=== PATIENT | male | born 1945 ===

== ENCOUNTER 2019-02-19 05:23 | Day surgery (SDC) | payer MEDICARE, MEDICAID ==
[2019-02-19] VITALS (10 sets, daily range): BP systolic 115–134; BP diastolic 63–80
[~2019-02-19] VITALS: Ht 170.2 cm; Wt 88.5 kg
[~2019-02-19 05:23] MED LIST: GLIPIZIDE5 MG ORAL; LIPITOR40 MG ORAL; LISINOPRIL20 MG ORAL
[2019-02-19] MEDS ORDERED: Akten 3.5% 1ml Btl ONE (05:51)
[2019-02-19 06:15] LABS: BASOPHILS % (AUTO) 1.6 % (0.0-2.0); HEMATOCRIT 43.8 % (42.0-52.0); HEMOGLOBIN 14.6 G/DL (14.2-18.0); LYMPHOCYTES % (AUTO) 40.2 % (20.0-45.0); MEAN CORPUSCULAR VOLUME 88 FL (80-99); MONOCYTES % (AUTO) 7.3 % (1.0-10.0); NEUTROPHILS % (AUTO) 47.9 % (45.0-75.0); PLATELET COUNT 198 K/UL (150-450); RED BLOOD COUNT 4.96 M/UL (4.70-6.10); RED CELL DISTRIBUTION WIDTH 11.3 % (11.6-14.8); WHITE BLOOD COUNT 7.4 K/UL (4.8-10.8)
[2019-02-19 06:24] LABS: ANION GAP 9 mmol/L (5-15); BLOOD UREA NITROGEN 16 mg/dL (7-18); CALCIUM 9.2 MG/DL (8.5-10.1); CARBON DIOXIDE 24 MMOL/L (21-32); CHLORIDE 105 MMOL/L (98-107); CREATININE 0.9 MG/DL (0.55-1.30); POTASSIUM 4.1 MMOL/L (3.5-5.1); SODIUM 138 MMOL/L (136-145)
[2019-02-19 06:26] LABS: INR 0.9 (0.9-1.1)
[2019-02-19] MEDS ORDERED: Akten 3.5% 1ml Btl BOTH EYES ONE (07:00)
[2019-02-19] MEDS ORDERED: Lidocaine 2% 20mg/ml/Epi 0.005mg/ml 20ml vial ONE (07:03)
[2019-02-19] MEDS ORDERED: Bupivacaine 0.75% 30ml vial INJ ONE (07:03)
[2019-02-19] MEDS ORDERED: BSS 15ml BTL ONE (07:07)
[2019-02-19] MEDS ORDERED: Maxitrol Opth Oint 3.5gm ONE (07:07)
[2019-02-19] MEDS ORDERED: Povidone-Iodine 5% opth solution ONE (07:07)
--- NOTE | 2019-02-19 07:12 | Pre-Procedure Note/Attestation ---
Pre-Procedure Note/Attestation Complete Prior to Procedure Planned Procedure: bilateral Procedure Narrative: Bilateral upper eyelid blepharoplasty Indications for Procedure Pre-Operative Diagnosis: Significant Dermatochalasis, entropion and ptosis Attestation I attest that I discussed the nature of the procedure; its benefits; risks and complications; and alternatives (and the risks and benefits of such alternatives ), prior to the procedure, with the patient (or the patient's legal b2b outside sales representative). I attest that, if there was a reasonable possibility of needing a blood transfusion, the patient (or the patient's legal b2b outside sales representative) was given the [facility] standardized written summary, pursuant to the [employer] [place] [place] Blood Safety Act ([place] Health and Safety Code # 1645, as amended). I attest that I re-evaluated the patient just prior to the surgery and that there has been no change in the patient's H&P, except as documented below: Raymundo Thrasher MD Feb 19, 2019 07:12
[2019-02-19] MEDS ORDERED: LR 1000ml 1,000 ML IVLG SCH (07:16)
--- NOTE | 2019-02-19 07:16 | Anethesia Preoperative Eval ---
Anesthesia Pre-op PMH/ROS General Date of Evaluation: Feb 19, 2019 Anesthesiologist: Maurice ASA Score: ASA 2 Mallampati Score Class I : Soft palate, uvula, fauces, pillars visible Class II: Soft palate, uvula, fauces visible Class III: Soft palate, base of uvula visible Class IV: Only hard plate visible Mallampati Classification: Class II Surgeon: Bakthiary Diagnosis: Bilateral eyelid ptosis Surgical Procedure: Bilateral blepharoplasty Anesthesia History: none Family History: no anesthesia problems Allergies: Coded Allergies: No Known Allergies (Unverified , 02/14/19) Medications: see eMAR Patient NPO?: Yes NPO Date: Feb 18, 2019 NPO Time: 22:00 Past Medical History Cardiovascular: Reports: HTN, other - HLD Pulmonary: Denies: asthma, COPD, DALY, other Gastrointestinal/Genitourinary: Denies: GERD, CRI, ESRD, other Neurologic/Psychiatric: Denies: dementia, CVA, depression/anxiety, TIA, other Endocrine: Reports: DM; Denies: hypothyroidism, steroids, other HEENT: Denies: cataract (L), cataract (R), glaucoma, [place] (L), [place] (R), other Hematology/Immune: Denies: anemia, DVT, bleeding disorder, other Musculoskeletal/Integumentary: Denies: OA, RA, DJD, DDD, edema, other PSxH Narrative: bilateral cataract, T&A Anesthesia Pre-op Phys. Exam Physician Exam Last Vital Signs Date Time Temp Pulse Resp B/P (MAP) Pulse Ox O2 Delivery O2 Flow Rate FiO2 02/19/19 06:03 97.7 71 20 134/76 97 Room Air Constitutional: NAD Cardiovascular: RRR Respiratory: CTA Airway Exam Mallampati Score: Class II MO: full ROM: full Anesthesia Pre-op A/P Labs Hematology Test 02/19/19 05:55 White Blood Count 7.4 K/UL (4.8-10.8) Red Blood Count 4.96 M/UL (4.70-6.10) Hemoglobin 14.6 G/DL (14.2-18.0) Hematocrit 43.8 % (42.0-52.0) Mean Corpuscular Volume 88 FL (80-99) Mean Corpuscular Hemoglobin 29.5 PG (27.0-31.0) Mean Corpuscular Hemoglobin Concent 33.4 G/DL (32.0-36.0) Red Cell Distribution Width 11.3 % (11.6-14.8) L Platelet Count 198 K/UL (150-450) Mean Platelet Volume 7.5 FL (6.5-10.1) Neutrophils (%) (Auto) 47.9 % (45.0-75.0) Lymphocytes (%) (Auto) 40.2 % (20.0-45.0) Monocytes (%) (Auto) 7.3 % (1.0-10.0) Eosinophils (%) (Auto) 3.0 % (0.0-3.0) Basophils (%) (Auto) 1.6 % (0.0-2.0) Coagulation Test 02/19/19 05:55 Prothrombin Time 10.1 SEC (9.30-11.50) Prothromb Time International Ratio 0.9 (0.9-1.1) Activated Partial Thromboplast Time 26 SEC (23-33) Chemistry Test 02/19/19 05:55 Sodium Level 138 MMOL/L (136-145) Potassium Level 4.1 MMOL/L (3.5-5.1) Chloride Level 105 MMOL/L (98-107) Carbon Dioxide Level 24 MMOL/L (21-32) Anion Gap 9 mmol/L (5-15) Blood Urea Nitrogen 16 mg/dL (7-18) Creatinine 0.9 MG/DL (0.55-1.30) Estimat Glomerular Filtration Rate mL/min (>60) Glucose Level 143 MG/DL (74-106) H Calcium Level 9.2 MG/DL (8.5-10.1) Studies Pre-op Studies: EKG - sr with RBBB=baseline Risk Assessment & Plan Assessment: ASA II Plan: MAC Status Change Before Surgery: No Pre-Antibiotics Drug: N/A Nati Crawford MD Feb 19, 2019 07:16
[2019-02-19] MEDS ORDERED: Propofol 200mg/20ml IV ONE (07:18)
[2019-02-19] MEDS ORDERED: fentaNYL 100 mcg/2 mL IV ONE (07:18)
[2019-02-19] MEDS ORDERED: Lidocaine 1% MPF 10mg/ml 5ml ONE (07:18)
[2019-02-19] MEDS ORDERED: Midazolam 2mg/2ml Inj ONE (07:18)
[2019-02-19] MEDS ORDERED: NS Irrig 1000ml ONE (07:19)
[2019-02-19] MEDS ORDERED: LR 1000ml ONE (07:19)
[2019-02-19] MEDS ORDERED: Sterile Water Irrig 1000ml IRRIG ONE (07:19)
[2019-02-19] MEDS ORDERED: DiphenhydrAMINE 50mg/ml Inj IVP PRN (07:30)
[2019-02-19] MEDS ORDERED: LORazepam Inj 2mg/ml 1ml IV PRN (07:30)
[2019-02-19] MEDS ORDERED: Metoclopramide 10mg/2ml Inj IVP PRN ×2 (07:30)
--- NOTE | 2019-02-19 08:26 | Brief Operative Note ---
Immediate Post Operative Note Operative Note Pre-op Diagnosis: Significant Dermatochalasis, entropion and ptosis Procedure: Upper lids blepharoplasty OU Post-op Diagnosis: same as pre-op Anesthesia: local, MAC Specimen: none Complications: none Condition: stable Fluids: 0 Estimated Blood Loss: minimal Implant(s) used?: No Raymundo Thrasher MD Feb 19, 2019 08:26
--- NOTE | 2019-02-19 08:27 | 48 Hour Post Anesthesia Eval ---
Post Anesthesia Evaluation Procedure: Bilateral blepharoplasty Date of Evaluation: Feb 19, 2019 Airway: patent Nausea: No Vomiting: No Pain Intensity: 0 Hydration Status: adequate Cardiopulmonary Status: at baseline Mental Status/LOC: patient returned to baseline Post-Anesthesia Complications: 0 Follow-up care needed: ready to discharge Nati Crawford MD Feb 19, 2019 08:27
--- NOTE | 2019-02-19 08:27 | Immediate Post-Op Evaluation ---
Immediate Post-Op Evalulation Immediate Post-Op Evalulation Procedure: Bilateral blepharoplasty Date of Evaluation: Feb 19, 2019 Time of Evaluation: 08:29 IV Fluids: 300 Blood Products: 0 Estimated Blood Loss: 0 Urinary Output: 0 Blood Pressure Systolic: 124 Blood Pressure Diastolic: 68 Pulse Rate: 72 Respiratory Rate: 16 O2 Sat by Pulse Oximetry: 98 Temperature (Fahrenheit): 97.3 Pain Score (1-10): 0 Nausea: No Vomiting: No Complications 0 Patient Status: awake, reacts, patent, none Hydration Status: adequate Drug: N/A Nati Crawford MD Feb 19, 2019 08:27
--- NOTE | 2019-02-19 08:28 | Discharge Instructions ---
Discharge Instructions Discharge Instructions Resume Normal Activity?: Yes For Surgical Patients Dressing Care: keep dry and clean May shower: No For Congestive Heart Failure Reminder Report to your physician any weight gain of 5 pounds or more in one week. Raymundo Thrasher MD Feb 19, 2019 08:28
[2019-02-19] MEDS ORDERED: Maxitrol Opth Oint 3.5gm BOTH EYES ONE (09:00)
--- NOTE | 2019-02-19 10:30 | Pre-op HX & Phy Repo 2 SIG ---
DATE OF ADMISSION: 02/19/2019 PRESURGICAL INTERNAL MEDICINE HISTORY AND PHYSICAL DATE OF EVALUATION: 02/19/2019 REASON FOR EVALUATION: I was asked by Dr. Raymundo Thrasher to see this 73-year-old male, who is going for elective surgery on both eyes. The patient has bilateral ptosis upper lid. Please see full ophthalmology History and Physical by Dr. Thrasher. The patient was examined. Chart was reviewed at [facility]. The patient is alert, well-developed and well-nourished male in his 70s, no acute distress. PAST MEDICAL HISTORY AND REVIEW OF SYSTEMS: Remarkable for hypertension, diabetes mellitus type 2, and coronary heart disease. No heart attack. Denies history of stroke or pulmonary problem. No history of anemia. Denies history of thyroid problem. No history of GI bleeding or hepatitis. No renal failure or prostate problem. PAST SURGICAL HISTORY: Remarkable for 19 years ago the patient did require stent placement to coronary artery. FAMILY HISTORY: Father at the age of 60 from heart attack. Mother at age of 88, old age. ALLERGIES: Not known. PRESENT MEDICATIONS: Include Janumet, baby aspirin, multivitamins, lisinopril, and Crestor. HABITS: The patient smoked for about 10 years, stopped 30 years ago. Denies alcohol or street drug use. PHYSICAL EXAMINATION: GENERAL: The patient is alert, well-developed and well-nourished male in his 70s, in no acute distress. VITAL SIGNS: Blood pressure 134/76, temperature 97.7, pulse 71 and regular, and respirations 20. O2 saturation 97% on room air. SKIN: Dry, warm, and clear. No rashes or ulcers. LYMPHATICS: Lymph nodes not enlarged. HEENT: Head is normocephalic. Bald. Eyes, full description per Dr. Raymundo Thrasher. Mouth, clear and moist. No dentures. Ears, clear. No discharge. NECK: Supple. No jugular vein distention. Carotids artery +2. Trachea midline. CHEST: No deformity or asymmetry. LUNGS: Clear to auscultation percussion. No rales or rhonchi. HEART: Sinus rhythm. No ectopy. Sound distant. No murmur. ABDOMEN: Soft, obese. Liver and spleen not enlarged. No rebound. No palpable masses. GENITALIA: Intact. Denied dysuria. No CVA tenderness. NEUROLOGIC: II to XII no pathology seen. No tremor. No nystagmus. No asymmetry. DIAGNOSTIC DATA: Electrocardiogram, normal sinus rhythm, rate is 75, right bundle-branch block. LABORATORY DATA: Fingerstick blood sugar 132 mg/dL. Rest of laboratory pending. IMPRESSION: 1. Blepharoptosis, bilateral upper lid. 2. Hypertension, controlled. 3. Diabetes mellitus type 2, controlled. 4. Right bundle-branch block on EKG. 5. History of coronary heart disease and coronary stent placement 20 years ago. The patient did not eat or drink from last night. PLAN: Blepharoplasty bilaterally per Dr. Thrasher. Thank you very much, Dr. Thrahser, for privilege to see this interesting patient. The patient's condition is optimized for surgery. Edgar Winter M.D. DR: JANEY JOB#: [id number] CC:
--- NOTE | 2019-02-20 03:45 | Procedure Note ---
DATE OF PROCEDURE: 02/19/2019 SURGEON: Raymundo Thrasher M.D. PREOPERATIVE DIAGNOSES: 1. Significant upper eyelid dermatochalasis, both eyes. 2. Upper eyelid ptosis, both eyes. 3. Entropion, upper eyelid, both eyes. POSTOPERATIVE DIAGNOSES: 1. Significant upper eyelid dermatochalasis, both eyes. 2. Upper eyelid ptosis, both eyes. 3. Entropion, upper eyelid, both eyes. PROCEDURE: 1. Upper eyelid blepharoplasty, both eyes. 2. Ptosis repair, both eyes. 3. Entropion correction, both eyes. ANESTHESIA: MAC with local anesthesia. SPECIMEN: None. BLEEDING: Minimal. COMPLICATION: None. INDICATION: The patient is a 73-year-old male with significant dermatochalasis and droopy eyelid in both eyes with inward rotation of the lid margin. On tested visual sanchez, there was superior obstruction of visual sanchez into both eyes and the patient was complaining of heaviness and puffiness around the eyelid, both eyes. Procedure including correction of dermatochalasis, ptosis, and entropion and true upper eyelid blepharoplasty was explained to the patient and he wishes to proceed with the procedure. INFORMED CONSENT: Risks, benefits, alternatives, and lateral course of the surgery of upper eyelid blepharoplasty with the patient's eyelid condition was explained. He understands there is always risk of infection, bleeding, , or even visual loss with any kind of surgery. There is a chance for worsening of dry eye, inflammation, bleeding, scar, asymmetric eyelid during the surgery. He voiced understanding, wishes to proceed with the surgery, signed informed consent. DESCRIPTION OF THE SURGERY: The patient was brought to the surgical room in a stable condition, was placed on a surgical table in supine position. First, a time-out was done to verify correct patient, correct surgery, and correct site of the surgery. Then after skin prep and starting minimal IV sedation, upper eyelid crease was marked with a marker on the patient's both eyes upper eyelids and then using a pinch test, using a forceps, the length of the skin to be excised was determined and marked on the patient's both eyes. At this point, local anesthesia with 2% lidocaine with epinephrine and Marcaine 0.75% in half and half fashion was injected through 30 gauge needle about 1 mL in each upper eyelid. The patient's upper face was prepped and draped in standard ophthalmology fashion and surgery was started. Using #15 surgical blade, first a skin incision was performed along the premarked area first in the right and then in the left eye. Then, using a toothed 0.3 forceps and a Doc scissors, skin and subcutaneous tissue with minimal amount of was excised based on the map area. At this point, any visible blood vessels or any oozing blood vessels was cauterized using Bovie system. Minimal cautery was performed on medial and lateral fat pad to shrunken to the desirable size. The procedure was done first in the right eye and then in the left eye. After making sure there was no active bleeding, suturing of the skin was starting using Prolene 5-0 suture first in the right and then in the left eye. First, a single separate suture was placed in the middle of the incised area in the patient's right eye and a single running continuous suture using 5-0 Prolene suture was started nasally and was continued all the way to the temporal side. In the same fashion, first a separate single suture was placed in the middle of the incised area in the patient's left upper eyelid then using 5-0 Prolene suture suturing was started on nasal side of the incised area in a continuous fashion was run up to the temporal area. After finishing suturing, Maxitrol ointment was placed on the incised area and a cold compress was applied after placing dressing on upper eyelid in both eyes. Running signs of bleeding, pain, and change in vision was explained to the patient. He understood, he will call immediately with any signs of pain, bleeding, or any change in vision. He was scheduled to come back to the office tomorrow morning at 10 a.m. for a followup after the surgery. Postop instructions were reviewed with the patient. The patient left the operating room in a stable condition. Turner Thrasher MD DR: SARITA JOB#: [id number] CC:
== END 2019-02-19 07:40 | disposition home or self-care (01) ==
LOC: SUR 05:23
DX: H02.834 Dermatochalasis of left upper eyelid (principal); H02.831 Dermatochalasis of right upper eyelid; H02.403 Unspecified ptosis of bilateral eyelids; H02.004 Unspecified entropion of left upper eyelid; H02.001 Unspecified entropion of right upper eyelid; I11.9 Hypertensive heart disease without heart failure; E11.9 Type 2 diabetes mellitus without complications; I45.10 Unspecified right bundle-branch block; Z95.5 Presence of coronary angioplasty implant and graft; I10 Essential (primary) hypertension; E78.5 Hyperlipidemia, unspecified
CPT/HCPCS: 15823; 36415; 67924; 80048; 82962; 85025; 85610; 85730; J1200; J2250; J2704; J3010; J3490; 94003; 94150